=== PATIENT | male | born 1975 | race Caucasian/White ===

== ENCOUNTER 2017-04-01 17:34 | Emergency (ER) | payer MEDICAID ==
[~2017-04-01] VITALS: Ht 167.6 cm; Wt 86.0 kg
[2017-04-01 18:02] VITALS: Ht 167.6 cm; Wt 86.0 kg
[2017-04-01] MEDS ORDERED: KETOROLAC 60 MG INJ IM STA (19:37)
[2017-04-01 19:51] LABS: URINE BLOOD (Dip) POC Negative (NEGATIVE)
[2017-04-01] MEDS ORDERED: HYDROCODONE/APAP (5/325) TAB PO ONE (20:00)
[2017-04-01] MEDS ORDERED: CYCL-319 PO (20:12)
[2017-04-01] MEDS ORDERED: IBUP-1542 PO (20:12)
[2017-04-01] MEDS ORDERED: TRAM50TA2 PO (20:12)
--- NOTE | 2017-04-01 20:32 | ERD ---
ER Documentation Chief Complaint Chief Complaint left lower back pain radiating down left leg x2 days HPI 41-year-old male complains of low back pain rating his left leg for last 2 days. He was started while he was sleeping. Denies any lifting or history of trauma. He denies any bowel or bladder incontinence, fevers. He possibly has some sensation of frequent urination but no blood or discharge ROS All systems reviewed and are negative except as per history of present illness. Medications Home Meds Active Scripts Cyclobenzaprine Hcl* (Cyclobenzaprine Hcl*) 10 Mg Tablet, 10 MG PO TID, #15 TAB Prov:TOMMIE JOHNSON MD 04/01/17 Ibuprofen* (Motrin*) 600 Mg Tab, 600 MG PO Q6, #20 TAB Prov:TOMMIE JOHNSON MD 04/01/17 Tramadol HCl (Tramadol HCl) 50 Mg Tablet, 50 MG PO Q4 Y for PAIN, #20 TAB Prov:TOMMIE JOHNSON MD 04/01/17 Allergies Allergies: Coded Allergies: No Known Drug Allergies (Verified Allergy, 02/10/12) PMhx/Soc Medical and Surgical Hx: pt denies Medical Hx, pt denies Surgical Hx History of Surgery: No Anesthesia Reaction: No Hx Neurological Disorder: No Hx Respiratory Disorders: No Hx Cardiac Disorders: No Hx Psychiatric Problems: No Hx Miscellaneous Medical Probl: No Hx Alcohol Use: No Hx Substance Use: No Hx Tobacco Use: No Smoking Status: Never smoker Physical Exam Vitals Vital Signs Date Time Temp Pulse Resp B/P Pulse Ox O2 Delivery O2 Flow Rate FiO2 04/01/17 18:02 98.3 81 20 128/60 97 Physical Exam Const: [], Not ill-appearing per Head: Atraumatic Eyes: Normal Conjunctiva ENT: Normal External Ears, Nose and Mouth. Neck: Full range of motion..~ No meningismus. Resp: Clear to auscultation bilaterally Cardio: Regular rate and rhythm, no murmurs Abd: Soft, non tender, non distended. Normal bowel sounds Skin: No petechiae or rashes Back: No midline or flank tenderness tenderness in the L4-L5 paraspinous muscles. Positive straight leg raise on the left. Ext: No cyanosis, or edema Neur: Awake and alert Psych: Normal Mood and Affect Results 24 hrs Laboratory Tests Test 04/01/17 19:50 Bedside Urine pH (LAB) 6.0 Bedside Urine Protein (LAB) Negative Bedside Urine Glucose (UA) Negative Bedside Urine Ketones (LAB) Negative Bedside Urine Blood Negative Bedside Urine Nitrite (LAB) Negative Bedside Urine Leukocyte Esterase (L Negative Current Medications Medications (Trade) Dose Ordered Sig/Dione Route PRN Reason Start Time Stop Time Status Last Admin Dose Admin Ketorolac Tromethamine (Toradol) 60 mg ONCE STAT IM 04/01/17 19:37 04/01/17 19:39 DC 04/01/17 19:44 Acetaminophen/ Hydrocodone Bitart ([place] (5/325)) 1 tab ONCE ONCE PO 04/01/17 20:00 04/01/17 20:01 DC 04/01/17 19:43 Procedures/MDM Urine is negative for blood, leukocytes, glucose, nitrites. X-ray LS-Spine 3V Interpreted by me: Bones: [No fracture] Joints: [No dislocation] Foreign body: [None] impression-no acute findings on lumbar spine x- ray Given Toradol 60 mg IM and [place] 5 mg by mouth. Patient presents with low back pain and signs of sciatica. Is no evidence to suggest epidural abscess, genitourinary etiology, cauda equina syndrome, neurologic deficit. He was treated with tramadol and ibuprofen and instructions for back exercises at home as well as primary care follow-up and return precautions. The patient was stable with no new complaints during the ER course. Clinically, there is no current evidence to suggest meningitis, sepsis, acute abdomen, pneumonia, acute coronary syndrome, pulmonary embolism, or any other emergent condition appearing to require further evaluation or hospitalization. The patient should certainly return for any new or worsening symptoms per the aftercare instructions. They should otherwise follow-up with her primary care doctor for reevaluation this week. Departure Diagnosis: Primary Impression: Back pain Back pain location: low back pain Chronicity: acute Back pain laterality: right Sciatica presence: with sciatica Sciatica laterality: sciatica of right side Qualified Code: M54.41 - Acute right-sided low back pain with right -sided sciatica Condition: Stable Patient Instructions: Back Exercises, Lumbar, Back Pain W/ Sciatica Additional Instructions: ORINA Y X JOHN normal hoy. Cheque otro vez con alvarenga doctor primario en el proximo de leon or regresa para mas o nueva simptomas. TEEHEE,TOMMIE N. MD Apr 01, 2017 20:32
--- NOTE | 2017-04-01 21:57 | RADRPT ---
PROCEDURE: XR Lumbar Spine. CLINICAL INDICATION: back pain TECHNIQUE: AP, lateral and cone-down lateral view of the lumbar spine were obtained. COMPARISON: No prior studies are available for comparison. FINDINGS: There is normal vertebral mineralization and alignment. No fracture or subluxation is seen. The disc spaces are normal in appearance. The posterior elements are unremarkable. The soft tissues appear normal. RPTAT: AA IMPRESSION: Unremarkable lumbar spine. .Matt Ornelas MD, MD Date Time Electronically viewed and signed by .Matt Ornelas MD, on 04/01/2017 21:56 .S/
== END 2017-04-01 20:53 | disposition home or self-care (01) ==
LOC: FTE 17:34
DX: M54.41 Lumbago with sciatica, right side (principal)
CPT/HCPCS: 72100; 81003; 96372; J1885; Z7502; Z7610

== ENCOUNTER 2017-07-24 22:03 | Emergency (ER) | END 2017-07-25 02:40 | disposition home or self-care (01) ==